=== PATIENT | male | born 1945 | race Two or more races ===

== ENCOUNTER 2025-02-07 06:43 | Day surgery (SDC) | payer OTHER ==
[~2025-02-07] VITALS: Ht 160 cm; Wt 77.1 kg
[~2025-02-07 06:43] MED LIST: AML5T PO; FINA5TAB4 PO; OMEP20TA PO
[2025-02-07] MEDS: LIDOCAINE VISCOUS 2% 15ML UD MT ONE (09:15)
[2025-02-07] MEDS: fentaNYL CITRATE 100 MCG/2 ML VL IV ONE (09:18)
[2025-02-07] MEDS: MIDAZOLAM HCL 2MG/2ML 2ml VIAL (1mg/ml) IV ONE (09:19)
[2025-02-07 09:24] VITALS: BP 105/60; PULSE 50; RESP 12; O2SAT 96
[2025-02-07 09:39] VITALS: BP 108/56; PULSE 47; RESP 12; O2SAT 96
[2025-02-07 09:54] VITALS: BP 113/58; PULSE 45; RESP 12; O2SAT 97
[2025-02-07 10:09] VITALS: BP 123/62; PULSE 47; RESP 12; O2SAT 97
[2025-02-07 10:25] VITALS: BP 142/68; PULSE 50; RESP 12; O2SAT 95
--- NOTE | 2025-02-07 10:41 | DVHOP2 ---
Operative Report PROCEDURES PERFORMED: trans esophageal echocardiogram, conscious sedation <15 mins, doppler assesment complete RICKIE, PREOPERATIVE DIAGNOSES: POSTOP DIAGNOSIS: DESCRIPTION OF PROCEDURE: The patient or appropriate family signed informed consent understanding the risks, benefits and alternatives of the procedure, they wished to proceed. The patient was brought to the cardiac research lab assistant in n.p.o. state. the patient was given 15 ml of oral viscous lidocaine. the patient was placed in a left lateral decubitus position with bite block in mouth. NExt conscious sedation was administered per research lab assistant protocol with _1_ mg of versed and _50__ mcg of fentanyl. Next a RICKIE probe was advanced to the mid esophagus with ease and multiple planar images obtained. At the completion of the procedure , probe was removed and there were no immediate complications. 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
--- NOTE | 2025-02-07 11:48 | ECG ---
[facility] Heart Test Date: 2025-02-07 Test Time: 07:35:16 Pat Name: FINA HOLLAND Department: Room: Gender: M Churn Tender: : 1945 Requested By: GALE ABBOTT Order Number: [id number] Reading MD: Connor Mike Measurements Intervals [place] Rate: 54 P: 10 [place]: 160 QRS: -20 QRSD: 108 T: 13 QT: 420 QTc: 398 Interpretive Statements Sinus bradycardia Electronically Signed On 02-09-2025 20:20:09 PDT by Connor Mike Please click the below link to view image of tracing.
== END 2025-02-07 10:42 | disposition home or self-care (01) ==
LOC: CATH 06:43
PROVIDERS: ATTEND Internal Medicine
DX: I08.3 Combined rheumatic disorders of mitral, aortic and tricuspid valves (principal); R94.39 Abnormal result of other cardiovascular function study; I50.30 Unspecified diastolic (congestive) heart failure; E03.9 Hypothyroidism, unspecified; Z79.890 Hormone replacement therapy; Z79.899 Other long term (current) drug therapy
CPT/HCPCS: 93005; 93312; 93325; J2250; J3010; J7030; 99152